=== PATIENT | female | born 1980 | race Caucasian/White ===

== ENCOUNTER 2022-04-12 21:22 | Emergency (ER) | payer OTHER ==
[~2022-04-12] VITALS: Ht 162.6 cm; Wt 59.0 kg
[2022-04-13] MEDS ORDERED: CEPHALEXIN500 M1 PO (02:31)
== END 2022-04-13 03:08 | disposition home or self-care (01) ==
LOC: ED 21:22
DX: M79.641 Pain in right hand (principal); K90.0 Celiac disease; L40.9 Psoriasis, unspecified
CPT/HCPCS: 36415; 73201; 80048; 85025; 99284-25; A9270; Q9967